=== PATIENT | male | born 1970 | race Hispanic/Latino ===

== ENCOUNTER 2018-02-06 19:05 | Emergency (ER) | payer BC ==
[2018-02-06 19:21] VITALS: BP 153/95; PULSE 98; RESP 20; TEMP 99.1; O2SAT 99
--- NOTE | 2018-02-06 20:03 | C.PDOC ---
History Of Present Illness 47 year old male presents to the ER after sustaining a laceration to the right thumb with the string of a bow while hunting earlier today. Patient reports he had moderate bleeding at the time. Denies weakness or numbness. Last tetanus was 2 years ago. Time Seen by Provider: 02/06/18 19:20 Chief Complaint (Nursing): Abnormal Skin Integrity History Per: Patient History/Exam Limitations: no limitations Onset/Duration Of Symptoms: Hrs Current Symptoms Are (Timing): Still Present Location Of Injury: Right: Hand (Thumb) Quality Of Symptoms: Other (Laceration) Recent travel outside of the [place]: No Past Medical History Reviewed: Historical Data, Nursing Documentation, Vital Signs Vital Signs: Last Vital Signs Temp 99.1 F 02/06/18 19:14 Pulse 98 H 02/06/18 19:14 Resp 20 02/06/18 19:14 BP 153/95 H 02/06/18 19:14 Pulse Ox 99 02/06/18 19:14 - Medical History PMH: Diabetes, HTN, Sleep Apnea Family History: States: Unknown Family Hx - Social History Hx Tobacco Use: No Hx Alcohol Use: No Hx Substance Use: No Review Of Systems Skin: Positive for: Other (Laceration) Neurological: Negative for: Weakness, Numbness Physical Exam - Physical Exam Appears: Non-toxic Skin: Warm, Dry Head: Atraumatic, Normacephalic Eye(s): bilateral: Normal Inspection Extremity: Normal ROM (x4), Capillary Refill (<2 seconds), Other (3cm laceration to proximal right thumb with minimal bleeding, no apparent tendon injury or laceration) Pulses: Left Radial: Normal, Right Radial: Normal Neurological/Psych: Oriented x3, Normal Speech, Normal Motor, Normal Sensation ED Course And Treatment O2 Sat by Pulse Oximetry: 99 (room air) Pulse Ox Interpretation: Normal Progress Note: Patient tolerated laceration repair without any difficulty, bacitracin and dressing applied. Patient given proper wound care instructions and advised to follow up with hand specialist. Laceration - Laceration Repair Right thumb Wound Length (In cm): 3 Description Of Wound: Linear Wound Cleansed With: Betadine Anesthesia: Lidocaine 1% Wound Examination: Irrigated With Saline, No FB With Wound Exploration, No Tendo n Injury With Wound Exploration Wound Closure: Suture (Seven 4-0 ethylene) Disposition Counseled Patient/Family Regarding: Diagnosis, Need For Followup, Rx Given - Disposition Referrals: [facility] [Outside] Wade Rowan MD [Staff Provider] - Disposition: HOME/ ROUTINE Disposition Time: 19:59 Condition: STABLE Additional Instructions: PLEASE FOLLOW UP WITH PMD OR IN ED IN 2 DAYS FOR WOUND CHECK CALL HAND FOR APPOINTMENT FOR FOLLOW UP APPLY TOPICAL ANTIBIOTIC CREAM SUTURE REMOVAL IN 10 DAYS RETURN TO ER IF SWELLING, DISCOLORATION, NUMBNESS, LACK OF SENSATON OR WORSE Instructions: Laceration Repair With Stitches (DC) Forms: [employer] (Bur[place]ian) - Clinical Impression Clinical Impression: Laceration of thumb, right - PA / INFORMATION TECHNOLOGY MANAGER / Resident Statement MD/DO has reviewed & agrees with the documentation as recorded. - Scribe Statement The provider has reviewed the documentation as recorded by the Scribe Jga Walker All medical record entries made by the Dillonibanil were at my direction and personally dictated by me. I have reviewed the chart and agree that the record accurately reflects my personal performance of the history, physical exam, medical decision making, and the department course for this patient. I have also personally directed, reviewed, and agree with the discharge instructions and disposition.
[2018-02-06] MEDS ORDERED: Bacitracin 500 Units/gm Oint Foilpak UD ONE (20:08)
== END 2018-02-06 20:16 | disposition home or self-care (01) ==
LOC: C.ER 19:05
DX: S61.011A Laceration without foreign body of right thumb without damage to nail, initial encounter (principal); W45.8XXA Other foreign body or object entering through skin, initial encounter; I10 Essential (primary) hypertension; E11.9 Type 2 diabetes mellitus without complications

== ENCOUNTER 2018-03-13 13:52 | Emergency (ER) | payer BC ==
[2018-03-13 14:07] VITALS: O2SAT 97
--- NOTE | 2018-03-13 15:44 | C.PDOC ---
History Of Present Illness Patient reports that he felt shaky and lightheaded prior to arrival, states that he did not eat much. No syncopal episode. At time of exam he states that he feels much better after drinking some viviane angie, is no longer shaky, and has no symptoms. Time Seen by Provider: 03/13/18 14:11 Chief Complaint (Nursing): Dizziness/Lightheaded Past Medical History Reviewed: Historical Data, Nursing Documentation, Vital Signs Vital Signs: Last Vital Signs Temp 98.1 F 03/13/18 14:01 Pulse 108 H 03/13/18 14:01 Resp 19 03/13/18 14:01 BP 184/119 H 03/13/18 14:01 Pulse Ox 97 03/13/18 14:01 - Medical History PMH: Diabetes, HTN, Sleep Apnea Family History: States: Unknown Family Hx - Social History Hx Tobacco Use: No Hx Alcohol Use: Yes Hx Substance Use: No - Immunization History Hx Tetanus Toxoid Vaccination: No Hx Influenza Vaccination: No Hx Pneumococcal Vaccination: No Review Of Systems Except As Marked, All Systems Reviewed And Found Negative. Constitutional: Negative for: Fever, Chills, Sweats Cardiovascular: Negative for: Chest Pain Respiratory: Negative for: Shortness of Breath Gastrointestinal: Negative for: Nausea, Vomiting Neurological: Negative for: Weakness Physical Exam - Physical Exam Appears: Well, Non-toxic, No Acute Distress Skin: Normal Color, Warm, Dry, No Diaphoretic, No Pale Head: Atraumatic Cardiovascular: Rhythm Regular Respiratory: Normal Breath Sounds Gastrointestinal/Abdominal: Normal Exam Neurological/Psych: Oriented x3 ED Course And Treatment O2 Sat by Pulse Oximetry: 97 Medical Decision Making Medical Decision Making: Patient currently has no complaints, states that he feels better after eating. Fingerstick 137. No further workup clinically necessary at this time. Stable for discharge. Disposition - Disposition Disposition: HOME/ ROUTINE Disposition Time: 15:47 Condition: STABLE - Clinical Impression Clinical Impression: Shakiness, Lightheadedness
[2018-03-13 16:21] VITALS: BP 153/98; PULSE 105; RESP 18; TEMP 99.1
== END 2018-03-13 16:21 | disposition home or self-care (01) ==
LOC: C.ER 13:52
DX: R42 Dizziness and giddiness (principal); R25.8 Other abnormal involuntary movements